=== PATIENT | female | born 1990 | race Two or more races ===

== ENCOUNTER 2019-03-04 05:36 | Day surgery (SDC) | payer OTHER ==
[2019-03-04] VITALS (12 sets, daily range): BP systolic 90–123; BP diastolic 50–80
[~2019-03-04] VITALS: Ht 162.6 cm; Wt 64.0 kg
[2019-03-04] MEDS ORDERED: oxyCONTIN 20mg tab ORAL ONE (06:00)
[2019-03-04] MEDS ORDERED: ceFAZolin sod 1gm in D5W 55ml IVPB ONE (06:00)
[2019-03-04] MEDS ORDERED: celeBREX 200mg Cap **SURGERY PATIENTS ONLY ORAL ONE (06:00)
--- NOTE | 2019-03-04 07:09 | Anethesia Preoperative Eval ---
Anesthesia Pre-op PMH/ROS General Date of Evaluation: Mar 04, 2019 Anesthesiologist: Adolfo ASA Score: ASA 1 Mallampati Score Class I : Soft palate, uvula, fauces, pillars visible Class II: Soft palate, uvula, fauces visible Class III: Soft palate, base of uvula visible Class IV: Only hard plate visible Mallampati Classification: Class I Surgeon: Hayden Diagnosis: Left knee internal derangement Surgical Procedure: Left knee diagnostic arthroscopy Anesthesia History: none Family History: no anesthesia problems Allergies: Coded Allergies: No Known Allergies (Unverified , 03/04/19) Medications: see eMAR Patient NPO?: Yes NPO Date: Mar 03, 2019 NPO Time: 22:00 Past Medical History Cardiovascular: Denies: HTN, CAD, TN, valve dz, arrhythmia, other Pulmonary: Denies: asthma, COPD, NISHI, other Gastrointestinal/Genitourinary: Denies: GERD, CRI, ESRD, other Neurologic/Psychiatric: Denies: dementia, CVA, depression/anxiety, TIA, other Endocrine: Denies: DM, hypothyroidism, steroids, other HEENT: Denies: cataract (L), cataract (R), glaucoma, LUMMI (L), LUMMI (R), other Hematology/Immune: Denies: anemia, DVT, bleeding disorder, other Musculoskeletal/Integumentary: Denies: OA, RA, DJD, DDD, edema, other PSxH Narrative: EGD Anesthesia Pre-op Phys. Exam Physician Exam see chart Constitutional: NAD Cardiovascular: RRR Respiratory: CTA Airway Exam Mallampati Score: Class I MO: full ROM: full Anesthesia Pre-op A/P Labs see chart Urine Test Test 03/04/19 05:45 Urine HCG, Qualitative Negative (NEGATIVE) Risk Assessment & Plan Assessment: ASA I Plan: GA Status Change Before Surgery: No Pre-Antibiotics Drug: Ancef 1g Given Within 1 Hr of Incision: Yes Ariana Moreau MD Mar 04, 2019 07:09
[2019-03-04] MEDS ORDERED: NKM (07:11)
[2019-03-04] MEDS ORDERED: Duramorph PF 5mg/10ml amp ONE (07:14)
[2019-03-04] MEDS ORDERED: Ketorolac 30mg Inj ONE ×2 (07:14→09:04)
[2019-03-04] MEDS ORDERED: Kenalog-40 1ml Vial ONE (07:14)
[2019-03-04] MEDS ORDERED: Bupivacaine 0.25% Inj 30ml INJ ONE (07:15)
[2019-03-04] MEDS ORDERED: Lidocaine 1% 10mg/ml/Epi 0.005mg/ml 30ml vial INJ ONE (07:15)
--- NOTE | 2019-03-04 07:47 | Operative Note - PDOC ---
Operative Note Operative Note Pre-op Diagnosis: left knee internal deragment Procedure: see op report Post-op Diagnosis: same as pre-op plus Operative Findings: consistent w/pre-op dx studies Anesthesia: MAC Specimen: none Complications: none Condition: stable Estimated Blood Loss: none Implant(s) used?: No Antelmo Blake MD Mar 04, 2019 07:47
--- NOTE | 2019-03-04 07:47 | Pre-Procedure Note/Attestation ---
Pre-Procedure Note/Attestation Complete Prior to Procedure Planned Procedure: left Procedure Narrative: knee diagnostic arthrscopy, possisle synovectomy Indications for Procedure Pre-Operative Diagnosis: left knee internal deragment Attestation I attest that I discussed the nature of the procedure; its benefits; risks and complications; and alternatives (and the risks and benefits of such alternatives ), prior to the procedure, with the patient (or the patient's legal medical customer service representative). I attest that, if there was a reasonable possibility of needing a blood transfusion, the patient (or the patient's legal medical customer service representative) was given the [facility] standardized written summary, pursuant to the [place] Blood Safety Act ([place] Health and Safety Code # 1645, as amended). I attest that I re-evaluated the patient just prior to the surgery and that there has been no change in the patient's H&P, except as documented below: Antelmo Blake MD Mar 04, 2019 07:47
[2019-03-04] MEDS ORDERED: LR 1000ml 1,000 ML IVLG SCH (07:50)
[2019-03-04] MEDS ORDERED: HYDROcodone/Acetamin 5/325 tab ORAL PRN (08:00)
[2019-03-04] MEDS ORDERED: LORazepam Inj 2mg/ml 1ml IV PRN (08:00)
[2019-03-04] MEDS ORDERED: DiphenhydrAMINE 50mg/ml Inj IVP PRN (08:00)
[2019-03-04] MEDS ORDERED: Tylenol #3 tab (300mg/30mg) ORAL PRN (08:00)
[2019-03-04] MEDS ORDERED: Hydromorphone 0.5mg/0.5ml inj IVP PRN (08:00)
[2019-03-04] MEDS ORDERED: Ketorolac 30mg Inj IV PRN (08:00)
[2019-03-04] MEDS ORDERED: Midazolam 2mg/2ml Inj IVP PRN (08:00)
[2019-03-04] MEDS ORDERED: fentaNYL 100 mcg/2 mL IV PRN (08:00)
[2019-03-04] MEDS ORDERED: D5 1/2NS 1,000 ML IV SCH (08:00)
[2019-03-04] MEDS ORDERED: HYDROmorphone 1mg/ml Carpuject SUBQ PRN (08:00)
[2019-03-04] MEDS ORDERED: NS Irrig 4000ml IRRIG ONE ×3 (08:06→09:10)
[2019-03-04] MEDS ORDERED: Duramorph PF 5mg/10ml amp IT ONE ×2 (08:08→09:10)
[2019-03-04] MEDS ORDERED: Lidocaine 1% MPF 10mg/ml 5ml ONE (08:35)
[2019-03-04] MEDS ORDERED: Propofol 200mg/20ml IV ONE (08:35)
[2019-03-04] MEDS ORDERED: Midazolam 2mg/2ml Inj ONE (08:36)
[2019-03-04] MEDS ORDERED: fentaNYL 100 mcg/2 mL IV ONE (08:36)
[2019-03-04] MEDS ORDERED: LR 1000ml ONE (08:44)
[2019-03-04] MEDS ORDERED: Sterile Water Irrig 1000ml IRRIG ONE (08:44)
[2019-03-04] MEDS ORDERED: Dexamethasone 4mg/ml vial ONE (09:04)
--- NOTE | 2019-03-04 09:44 | Immediate Post-Op Evaluation ---
Immediate Post-Op Evalulation Immediate Post-Op Evalulation Procedure: Left knee arthroscopy Date of Evaluation: Mar 04, 2019 Time of Evaluation: 09:45 IV Fluids: 500 Blood Products: 0 Estimated Blood Loss: min Urinary Output: 0 Blood Pressure Systolic: 89 Blood Pressure Diastolic: 46 Pulse Rate: 79 Respiratory Rate: 17 O2 Sat by Pulse Oximetry: 99 Temperature (Fahrenheit): 97.2 Pain Score (1-10): 0 Nausea: No Vomiting: No Complications 0 Patient Status: awake, reacts, patent, none Hydration Status: adequate Drug: Ancef 1g Given Within 1 Hr of Incision: Yes Ariana Moreau MD Mar 04, 2019 09:44
--- NOTE | 2019-03-04 09:45 | 48 Hour Post Anesthesia Eval ---
Post Anesthesia Evaluation Procedure: Left knee arthroscopy Date of Evaluation: Mar 04, 2019 Airway: patent Nausea: No Vomiting: No Pain Intensity: 0 Hydration Status: adequate Cardiopulmonary Status: at baseline Mental Status/LOC: patient returned to baseline Post-Anesthesia Complications: 0 Follow-up care needed: ready to discharge Ariana Moreau MD Mar 04, 2019 09:45
--- NOTE | 2019-03-04 15:00 | Operative Note - Dictated ---
DATE OF OPERATION: 03/04/2019 PREOPERATIVE DIAGNOSES: 1. Left knee ACL sprain. 2. 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 3. Intrameniscal degeneration, posterior horn and medial meniscus. POSTOPERATIVE DIAGNOSES: 1. Left knee ACL sprain. 2. 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 3. Intrameniscal degeneration, posterior horn and medial meniscus. PROCEDURE: 1. Left knee diagnostic arthroscopy. 2. Synovectomy medial and lateral patellofemoral compartment. SURGEON: Antelmo Blake M.D. ANESTHESIA: MAC. INDICATION FOR PROCEDURE: The patient is a pleasant female who has had continued left knee pain. She had some signal change along the ACL consistent with a sprain. She had some intrameniscal degeneration of the meniscus. She had continued pain despite conservative treatment. She elected to undergo left knee diagnostic arthroscopy and synovectomy and possible meniscectomy. Risks, limitations, expectations, and complications of procedure were discussed in detail. All questions addressed. DESCRIPTION OF PROCEDURE: After informed consent was obtained, the patient was brought to the operating room. The patient was placed under monitored anesthesia. Left leg was prepped and draped in a sterile manner. Time-out was performed. Inferolateral stab incision was then made. Trocar was introduced into the knee joint. There was hypertrophic fat pad in the patellofemoral compartment. The medial gutter was entered, free of any meniscal or any loose bodies. Medial compartment was entered. No obvious tear of the meniscus. No chondral damage. Medial working portal was established. Excision of the fat pad and synovectomy was performed to better visualize the anterior horn, which was intact. The synovectomy extending intercondylar notch removing some of the ligamentum mucosum as well. This allowed better visualization of the ACL. The ACL was probed, noted to be intact. Lateral compartment was entered, free from meniscal chondral damage. Camera was repositioned in the patellofemoral compartment. Excision the fat pad was completed revealing also medial plica, which was debrided. Once that was done, the instruments were removed. Portal sites were closed with 3-0 Monocryl sutures. Steri-Strips and a sterile dressing were applied. The patient was awoken and taken to recovery room with stable signs. ESTIMATED BLOOD LOSS: None. COMPLICATIONS: None. SPECIMENS: None. IMPLANTS: None. Antelmo Blake M.D. DR: PITA JOB#: [id number] CC:
== END 2019-03-04 14:10 | disposition home or self-care (01) ==
LOC: SUR 05:36
DX: S83.512A Sprain of anterior cruciate ligament of left knee, initial encounter (principal); X58.XXXA Exposure to other specified factors, initial encounter; Y92.9 Unspecified place or not applicable; M79.4 Hypertrophy of (infrapatellar) fat pad
CPT/HCPCS: 29876; 81025; J0690; J1100; J1170; J1885; J2250; J2704; J3010; J3301; J3490; J7120; 94003; 94150